=== PATIENT | female | born 1995 | race Caucasian/White ===

== ENCOUNTER → 2018-06-15 13:59 | Outpatient (CLI) | payer BC, SELFPAY ==
--- NOTE | 2018-06-15 14:09 | XR_ITS ---
XR chest 2V HISTORY: ITS.REASON: MUSKOSKELETAL CHEST PAIN ORDERING PHYSICIAN: Renetta Gudino PATIENT AGE: 22 years COMPARISON: None FINDINGS: The cardiomediastinal silhouette and pulmonary vascularity are within normal limits. The lungs are clear without infiltrates, suspicious nodules, or pleural effusions. There is a faint nodular opacity in the left midlung which measures 11 mm containing a central calcific density which may be due to granuloma. Follow-up suggested for confirmation. No acute bony abnormalities. IMPRESSION: No acute finding. Possible partially calcified granuloma in the left midlung
== END ==
PROVIDERS: PCP Nurse Practitioner Family; Visit Provider Nurse Practitioner Family
DX: R07.89 Other chest pain (principal)
CPT/HCPCS: 71046